=== PATIENT | female | born 1975 | race Caucasian/White ===

== ENCOUNTER 2017-03-10 22:19 | Inpatient (IN) | payer OTHER ==
[~2017-03-10] VITALS: Ht 154.9 cm; Wt 74.0 kg
[2017-03-10 22:33] VITALS: Ht 154.9 cm; Wt 74.0 kg
[2017-03-10 23:18] LABS: BASOPHIL % 0.3 % (0-2); PLATELET COUNT 371 x10^3mcL (130-400)
[2017-03-10 23:19] LABS: RED CELL DISTRIBUTION WIDTH 21.3 % (11.5-14.5)
[2017-03-10 23:28] LABS: CALCIUM 8.3 mg/dL (8.5-10.1); CARBON DIOXIDE 26.1 mmol/L (21-32); CHLORIDE SERUM 101 mmol/L (98-107); CREATININE SERUM 0.6 mg/dL (0.6-1.0); GFR1 > 60 mL/min; GLUCOSE SERUM 133 mg/dL (74-106); POTASSIUM SERUM 3.1 mmol/L (3.5-5.1); SODIUM SERUM 139 mmol/L (136-145)
[2017-03-10 23:46] LABS: ALBUMIN 3.6 g/dL (3.4-5.0); ALKALINE PHOSPHATASE 59 U/L (46-116); ALT/SGPT 25 U/L (14-59); AST/SGOT 17 U/L (15-37); BILIRUBIN TOTAL 0.2 mg/dL (0.20-1.00); LIPASE 149 IU/L (73-393); TOTAL PROTEIN, SERUM 7.4 g/dL (6.4-8.2)
[2017-03-10 23:49] LABS: ovalocyte/elliptocyte 2+; rbc morphology (normal/abnorm) ABNORMAL (NORMAL); tear drop cell (dacryocyte) 1+
[2017-03-11 02:22] VITALS: BP 106/56
[2017-03-11 02:25] VITALS: BP 106/56
[2017-03-11 02:50] LABS: T3 TOTAL 1.18 ng/mL
[2017-03-11 03:49] LABS: TOTAL IRON BINDING CAPACITY 452 ug/dL (250-450)
[2017-03-11 03:58] LABS: FREE T4 0.99 ng/dL (0.76-1.46); FREE THYROXINE INDEX 2.9 ug/dL (1.4-4.5); T4(THYROXINE) 9.1 ug/dL (4.7-13.3)
[2017-03-11 04:21] LABS: IRON 11 ug/dL (50-170)
[2017-03-11 04:22] LABS: CHOLESTEROL/HDL RATIO 1.7; MAGNESIUM 2.1 mg/dL (1.8-2.4); PHOSPHOROUS 3.4 mg/dL (2.5-4.9)
[2017-03-11 05:10] LABS: microscopic required? YES; urine erythrocyte 3+ (NEGATIVE)
[2017-03-11 05:19] LABS: AMPHETAMINE QUAL UR NONE DETECTED (NEG <=1000)
[2017-03-11 09:41] VITALS: BP 100/45
[2017-03-11 13:01] LABS: BASOPHIL % 0.2 % (0-2); PLATELET COUNT 319 x10^3mcL (130-400)
[2017-03-11 13:03] LABS: RED CELL DISTRIBUTION WIDTH 21.3 % (11.5-14.5)
[2017-03-11 13:04] LABS: rbc morphology (normal/abnorm) ABNORMAL (NORMAL)
[2017-03-11 13:06] VITALS: BP 112/62
[2017-03-11 13:11] LABS: RED BLOOD CELLS 3.53 M/mm3 (4.10-5.10)
[2017-03-11 13:18] LABS: CALCIUM 8.2 mg/dL (8.5-10.1); CARBON DIOXIDE 25.5 mmol/L (21-32); CHLORIDE SERUM 104 mmol/L (98-107); CREATININE SERUM 0.5 mg/dL (0.6-1.0); GFR1 > 60 mL/min; GLUCOSE SERUM 103 mg/dL (74-106); POTASSIUM SERUM 3.9 mmol/L (3.5-5.1); SODIUM SERUM 138 mmol/L (136-145)
[2017-03-11 17:28] VITALS: BP 110/49
[2017-03-11 21:20] VITALS: BP 157/52
[2017-03-12 05:54] VITALS: BP 97/53
[2017-03-12 06:36] LABS: PLATELET COUNT 306 x10^3mcL (130-400)
[2017-03-12 07:09] LABS: CALCIUM 8.5 mg/dL (8.5-10.1); CARBON DIOXIDE 21.9 mmol/L (21-32); CHLORIDE SERUM 100 mmol/L (98-107); CREATININE SERUM 0.6 mg/dL (0.6-1.0); GFR1 > 60 mL/min; GLUCOSE SERUM 96 mg/dL (74-106); MAGNESIUM 1.5 mg/dL (1.8-2.4); PHOSPHOROUS 3.2 mg/dL (2.5-4.9); POTASSIUM SERUM 3.1 mmol/L (3.5-5.1); SODIUM SERUM 136 mmol/L (136-145)
[2017-03-12 07:30] LABS: RED CELL DISTRIBUTION WIDTH 21.4 % (11.5-14.5)
[2017-03-12 09:12] VITALS: BP 92/49
[2017-03-12 10:18] LABS: BAND NEUTROPHIL 12 % (0-10); BASOPHIL 0 % (0-2); MONOCYTE 10 % (0-7); SEGMENTED NEUTROPHILS 77 % (37-75)
[2017-03-12 10:20] LABS: rbc morphology (normal/abnorm) ABNORMAL (NORMAL)
[2017-03-12 10:22] LABS: ovalocyte/elliptocyte 1+
[2017-03-12 16:25] VITALS: BP 99/49
[2017-03-12 19:20] VITALS: BP 100/56
[2017-03-12 20:34] VITALS: BP 108/56
[2017-03-13] VITALS (7 sets, daily range): BP systolic 91–108; BP diastolic 49–61
[2017-03-13 07:29] LABS: CARBON DIOXIDE 20.2 mmol/L (21-32); CHLORIDE SERUM 99 mmol/L (98-107); CREATININE SERUM 0.6 mg/dL (0.6-1.0); GFR1 > 60 mL/min; GLUCOSE SERUM 90 mg/dL (74-106); MAGNESIUM 1.7 mg/dL (1.8-2.4); POTASSIUM SERUM 3.1 mmol/L (3.5-5.1); SODIUM SERUM 136 mmol/L (136-145)
[2017-03-13 07:50] LABS: PLATELET COUNT 284 x10^3mcL (130-400); RED CELL DISTRIBUTION WIDTH 21.9 % (11.5-14.5)
[2017-03-13 09:01] LABS: BAND NEUTROPHIL 3 % (0-10); BASOPHIL 0 % (0-2); SEGMENTED NEUTROPHILS 94 % (37-75)
[2017-03-13 09:02] LABS: rbc morphology (normal/abnorm) ABNORMAL (NORMAL)
[2017-03-13 09:03] LABS: PLATELET MORPHOLOGY PLATELETS NORMAL; ovalocyte/elliptocyte 1+; schistocyte (helmet cell) 1+
[2017-03-14 05:45] VITALS: BP 112/60
[2017-03-14 07:00] LABS: CALCIUM 8.4 mg/dL (8.5-10.1); CARBON DIOXIDE 22.9 mmol/L (21-32); CHLORIDE SERUM 103 mmol/L (98-107); CREATININE SERUM 0.6 mg/dL (0.6-1.0); GFR1 > 60 mL/min; GLUCOSE SERUM 134 mg/dL (74-106); MAGNESIUM 2.2 mg/dL (1.8-2.4); PHOSPHOROUS 2.3 mg/dL (2.5-4.9); POTASSIUM SERUM 3.7 mmol/L (3.5-5.1); SODIUM SERUM 137 mmol/L (136-145)
[2017-03-14 08:06] LABS: PLATELET COUNT 266 x10^3mcL (130-400)
[2017-03-14 08:13] LABS: RED CELL DISTRIBUTION WIDTH 21.9 % (11.5-14.5)
[2017-03-14 10:28] VITALS: BP 107/59
[2017-03-14 11:09] LABS: BAND NEUTROPHIL 3 % (0-10); BASOPHIL 0 % (0-2); MONOCYTE 5 % (0-7); SEGMENTED NEUTROPHILS 88 % (37-75)
[2017-03-14 11:10] LABS: ovalocyte/elliptocyte 2+; rbc morphology (normal/abnorm) ABNORMAL (NORMAL)
[2017-03-14 11:14] LABS: PLATELET MORPHOLOGY PLATELETS NORMAL
[2017-03-14 14:18] LABS: PLATELET COUNT 311 x10^3mcL (130-400)
[2017-03-14 14:23] LABS: RED CELL DISTRIBUTION WIDTH 22.2 % (11.5-14.5)
[2017-03-14] MEDS ORDERED: FER300 PO (14:41)
[2017-03-14] MEDS ORDERED: COL100 PO (14:41)
[2017-03-14] MEDS ORDERED: APAP/HYDROCODON1 T11 PO (14:43)
[2017-03-14 15:02] LABS: BAND NEUTROPHIL 2 % (0-10); BASOPHIL 0 % (0-2); MONOCYTE 7 % (0-7); SEGMENTED NEUTROPHILS 84 % (37-75)
[2017-03-14 15:03] LABS: ovalocyte/elliptocyte 1+; rbc morphology (normal/abnorm) ABNORMAL (NORMAL)
[2017-03-14 15:08] VITALS: BP 107/59
[2017-03-14 18:06] VITALS: BP 107/53
[2017-03-14 21:41] VITALS: BP 100/58
[2017-03-15 04:59] VITALS: BP 93/54
[2017-03-15 07:16] LABS: CALCIUM 8.3 mg/dL (8.5-10.1); CHLORIDE SERUM 103 mmol/L (98-107); CREATININE SERUM 0.5 mg/dL (0.6-1.0); GFR1 > 60 mL/min; GLUCOSE SERUM 103 mg/dL (74-106); MAGNESIUM 1.9 mg/dL (1.8-2.4); PHOSPHOROUS 2.4 mg/dL (2.5-4.9); POTASSIUM SERUM 3.2 mmol/L (3.5-5.1); SODIUM SERUM 139 mmol/L (136-145)
[2017-03-15 07:45] LABS: PLATELET COUNT 294 x10^3mcL (130-400)
[2017-03-15 07:53] LABS: RED CELL DISTRIBUTION WIDTH 22.3 % (11.5-14.5)
[2017-03-15 09:50] LABS: BAND NEUTROPHIL 0 % (0-10); BASOPHIL 0 % (0-2); MONOCYTE 11 % (0-7); SEGMENTED NEUTROPHILS 74 % (37-75); ovalocyte/elliptocyte 1+; rbc morphology (normal/abnorm) ABNORMAL (NORMAL); tear drop cell (dacryocyte) 1+
[2017-03-15 09:51] LABS: PLATELET MORPHOLOGY LARGE PLATELET SEEN
[2017-03-15 11:37] VITALS: BP 107/53
[2017-03-15] MEDS ORDERED: IBUPROFEN400 MG PO (12:47)
[2017-03-15] MEDS ORDERED: ZOF4 PO (13:02)
[2017-03-15 14:39] VITALS: BP 107/53
== END 2017-03-15 15:14 | disposition home or self-care (01) | DRG 418 ==
LOC: ED 22:19 → MU 03-11 00:32 → DU 03-11 00:32 → MU 03-11 08:28
PROVIDERS: Emergency Medicine; Family Medicine; Family Medicine Sports Medicine
PROC: 0FT44ZZ Resection of Gallbladder, Percutaneous Endoscopic Approach (ICD-10-PCS; principal; 2017-03-11)
DX: K80.00 Calculus of gallbladder with acute cholecystitis without obstruction (principal); K82.1 Hydrops of gallbladder; E87.6 Hypokalemia; E83.42 Hypomagnesemia; D50.9 Iron deficiency anemia, unspecified; K21.9 Gastro-esophageal reflux disease without esophagitis; R31.9 Hematuria, unspecified; K76.0 Fatty (change of) liver, not elsewhere classified; Z68.30 Body mass index [BMI] 30.0-30.9, adult
CPT/HCPCS: 83880; 84439; 90658; 94150; J0330; J0690; J1170; J1750; J1885; J2250; J2270; J2405; J2543; J2704; J2710; J3010; J3480; J3490; J7030; J7120; J8597; Q0092

== ENCOUNTER 2017-03-16 12:23 | Emergency (ER) | payer OTHER ==
[~2017-03-16 12:23] MED LIST: APAP/HYDROCODON1 T11 PO; COL100 PO; FER300 PO; IBUPROFEN400 MG PO; ZOF4 PO
[2017-03-16 13:28] VITALS: BP 124/69
== END 2017-03-16 16:10 | disposition home or self-care (01) ==
LOC: ED 12:23
DX: Z48.01 Encounter for change or removal of surgical wound dressing (principal); R10.11 Right upper quadrant pain; Z90.49 Acquired absence of other specified parts of digestive tract